=== PATIENT | female | born 1975 | race Caucasian/White ===

== ENCOUNTER → 2018-01-17 15:20 | Outpatient (CLI) | payer MEDICARE, SELFPAY ==
--- NOTE | 2018-01-17 15:22 | RAD_ITS ---
STUDY: X-RAY - LEFT KNEE REASON FOR EXAM: Female, 42 years old. 5 months postop. TECHNIQUE: 4 view(s) of the knee. COMPARISON: 11/19/2017. FINDINGS: There again is total left knee prosthesis. The alignment and position have not significantly changed. There is no evidence of acute fracture. There is no evidence of joint effusion. RAD/Knee 4 or More Views IMPRESSION: Status post total knee replacement. Electronically Signed: Adithya Manning MD at 15:23 EST Tel , Service support ,
== END ==
PROVIDERS: Visit Provider Orthopaedic Surgery
DX: M25.562 Pain in left knee (principal); Z96.652 Presence of left artificial knee joint
CPT/HCPCS: 73564

== ENCOUNTER → 2019-08-24 15:40 | Outpatient (CLI) | payer MEDICARE, SELFPAY ==
[2017-11-19 16:16] VITALS: BMI 35.8
[2019-08-24 17:51] LABS: Amphetamine Urine VISTA NEGATIVE (<1000 ng/mL); Barbiturate Urine VISTA NEGATIVE (< 200 ng/mL); Benzodiazepine Urine VISTA NEGATIVE (< 200 ng/mL); Cocaine Urine VISTA NEGATIVE (< 300 ng/mL); Ecstacy Urine VISTA NEGATIVE (< 500 ng/mL); Methadone Urine VISTA NEGATIVE (< 300 ng/mL); PCP Urine VISTA NEGATIVE (< 25 ng/mL); THC Urine VISTA NEGATIVE (< 50 ng/mL); Vista UDS pH Range 7
== END ==
PROVIDERS: Referring Provider Anesthesiology Pain Medicine; Visit Provider Anesthesiology Pain Medicine
DX: F11.20 Opioid dependence, uncomplicated (principal)
CPT/HCPCS: 80307

== ENCOUNTER → 2019-09-03 16:24 | Outpatient (CLI) | payer MEDICARE, SELFPAY ==
--- NOTE | 2019-09-03 16:25 | MRI_ITS ---
STUDY: MRI LUMBAR SPINE WITHOUT CONTRAST REASON FOR EXAM: Female, 44 years old. The patient presents with a history of back pain with pain radiating down the bilateral legs (left greater than right), x5 years. TECHNIQUE: Standardized fat and water weighted pulse sequences were obtained in the sagittal and axial planes. COMPARISON: No relevant priors. FINDINGS: Vertebrae, Alignment and Curvature Vertebrae: Normal. Alignment: Normal. Curvature: Normal lordosis. Mild levoscoliosis of the lumbar spine on this non-weight bearing examination. Thoracic Cord (visualized distal) / Conus Medullaris Normal. Terminates at the superior endplate of the L2 vertebra. Disc Space Levels N.B.: Normal level statement indicates: Normal endplates; disc height, signal and morphology; facet joints; central canal, lateral recesses, and intervertebral neuroformina. T11-12: (Imaged only in the sagittal plane). There is disc desiccation, moderate loss of the disc height, with a posterior central disc herniation of protrusion type (sagittal T2 series 2, image 8). This disc protrusion measures approximately 5 mm in its AP dimension and is producing ventral rightward ventral thecal sac flattening but without demonstrated vascularity cord impingement. Normal central canal and intervertebral neural foramina. T12-L1: Normal. (Imaged only in the sagittal plane). L1-L2: Normal. L2-L3: There is disc desiccation, mild loss of the disc height, mild facet arthrosis with mild posterior annular bulging with a left foraminal to far left lateral extraforaminal disc protrusion, but without neural impingement upon the exiting left L2 nerve root (axial T2 series 5, image 17). Disc protrusion measures approximately 4 mm in width. The intervertebral neural foramina remain patent without demonstrated neural impingement. Normal central canal. L3-L4: There is disc desiccation, severe loss of the disc height, circumferential endplate spondylosis, mild facet arthrosis with a right foraminal disc protrusion (axial T1 series 6, image 11). The right foraminal disc protrusion measures approximately 5 mm in width and is producing retrodiscal foraminal compromise (sagittal T1 series 3, image 10), but without foraminal neural impingement. Normal central canal. The left L3-4 intervertebral neural foramina remains patent. L4-L5: There is disc desiccation, mild loss of the disc height posteriorly with moderate bilateral facet arthrosis. Normal central canal with minimal bilateral foraminal stenosis but without neural impingement. L5-S1: There is disc desiccation, preservation disc height, with severe bilateral facet arthroses (left greater than right). There is left-sided facet effusion (axial T2 series 5, image 3 with subcortical cystic erosion of the superior left L5 facet (axial T2 series 5, image 1). Normal central canal and intervertebral neural foramina. Sacral Alae: Normal. Retroperitoneum and Paraspinal Structures Kidneys: Non-visualized. Aorta: Normal. Inferior Vena Cava: Normal. Lymph Nodes: None visualized. Muscles (Paraspinal): Normal. MRI/Spine Lumbar (Routine) IMPRESSION: 1. T11-12 posterior central disc herniation of protrusion type producing thecal sac flattening but without impingement upon the thoracic cord. 2. L2-3 left foraminal to far left lateral extraforaminal disc protrusion, but without neural impingement. 3. L3-4 right foraminal disc protrusion, but without neural impingement. 4. L4-5 moderate bilateral facet arthroses and foraminal stenosis but without neural impingement. 5. L5-S1 severe bilateral facet arthroses (left greater than right) with left-sided facet effusion and subcortical cystic erosion of the superior left L5 facet. No foraminal neural impingement upon the exiting L5 nerve roots. Electronically Signed: Yuan Almanzar DO at 10:56 EDT Tel , Service support ,
== END ==
LOC: MRI 16:25
PROVIDERS: Family Provider Family Medicine; PCP Family Medicine; Referring Provider Anesthesiology Pain Medicine; Visit Provider Anesthesiology Pain Medicine
DX: M54.9 Dorsalgia, unspecified (principal)
CPT/HCPCS: 72148

== ENCOUNTER → 2020-04-26 11:14 | Outpatient (CLI) | payer MEDICARE, SELFPAY ==
[2017-11-19 16:16] VITALS: BMI 35.8
[2020-04-26 13:19] LABS: Amphetamine Urine VISTA NEGATIVE (<1000 ng/mL); Barbiturate Urine VISTA NEGATIVE (< 200 ng/mL); Benzodiazepine Urine VISTA NEGATIVE (< 200 ng/mL); Cocaine Urine VISTA NEGATIVE (< 300 ng/mL); Ecstacy Urine VISTA NEGATIVE (< 500 ng/mL); Methadone Urine VISTA NEGATIVE (< 300 ng/mL); PCP Urine VISTA NEGATIVE (< 25 ng/mL); THC Urine VISTA NEGATIVE (< 50 ng/mL); Vista UDS pH Range 7
== END ==
PROVIDERS: PCP Family Medicine; Referring Provider Anesthesiology Pain Medicine; Visit Provider Anesthesiology Pain Medicine
DX: F11.20 Opioid dependence, uncomplicated (principal)
CPT/HCPCS: 80307

== ENCOUNTER → 2020-11-04 05:00 | Outpatient (REF) | payer MEDICARE, SELFPAY | LOC: OLS.ACW200 05:00 | PROVIDERS: PCP Family Medicine; Referring Provider Family Medicine; Visit Provider Family Medicine | DX: Z03.818 Encounter for observation for suspected exposure to other biological agents ruled out (principal); M86.171 Other acute osteomyelitis, right ankle and foot; A41.9 Sepsis, unspecified organism; A49.02 Methicillin resistant Staphylococcus aureus infection, unspecified site; M86.172 Other acute osteomyelitis, left ankle and foot | CPT/HCPCS: 87635; U0003 ==

== ENCOUNTER 2021-11-07 17:06 | Inpatient (IN) | payer MEDICARE, MEDICAID, SELFPAY ==
[2021-11-07 17:11] VITALS: BP 129/108; PULSE 55; RESP 18; TEMP 36.1; O2SAT 100; BMI 32.8
--- NOTE | 2021-11-07 19:46 | EKG12_ITS ---
Test Reason : DYSRHYTHMIA Blood Pressure : / mmHG Vent. Rate : 049 BPM Atrial Rate : 049 BPM P-R Int : 174 ms QRS Dur : 080 ms QT Int : 500 ms P-R-T Axes : 063 -11 039 degrees QTc Int : 451 ms Sinus bradycardia Otherwise normal ECG Confirmed by NATAN ARELLANO, CINTHYA ([id number]), editor in chief JOAN GARCIA ([id number]) on 11/10/2021 1:00:25 PM Referred By: TIM Confirmed By:CINTHYA GAMA MD
--- NOTE | 2021-11-07 19:50 | EX.ED.CRITCA ---
HPI History of Present Illness Chief Complaint: Confusion Detail of Chief Complaint: Altered mental status progressively getting worse Informant: family (Daughter is the informant since patient is nonverbal) Onset/Context/Timing Onset: Days and Weeks Context: Gradual Onset Timing: Continuous Quality: Altered mental status with multiple admissions to [facility] Location: Daughter brings her from home history is limited Maximum Severity: Severe Worsened by: Unknown Relieved by: Nothing Associated Symptoms Associated Symptoms: other (Unknown) Narrative Narrative: Patient presently is nonverbal. She has abnormal respiratory pattern. She is heavyset. Daughter is concerned that something is going on. She states she normally takes her to [facility] but [facility] seizure and then discharges her. There is no history of thyroid disease. She does have history of chronic pain. She is on gabapentin. She also has history of GERD. Prior similar symptoms: No Recent Illness/Hospitalization: Yes PFSH PFSH Medical History unable to obtain unable to obtain Home Medications albuterol sulfate 1 - 2 puff INHALATION Q6H PRN PRN 07/30/17 [History Last Taken 08/06/17 03:30 1 - 2 PUFF] calcium carbonate 500 mg PO 4X/DAY 07/30/17 [History Last Taken 08/28/17] cholecalciferol (vitamin D3) 4,000 unit PO DAILY 07/30/17 [History Last Taken 08/28/17] cyanocobalamin (vitamin B-12) 1,000 mcg PO WE 07/30/17 [History Last Taken 08/28/17] gabapentin 800 mg PO TIDCM 07/30/17 [History Last Taken 08/28/17] metoprolol tartrate 25 mg PO BID 07/30/17 [History Last Taken 08/28/17] omeprazole magnesium 20 mg PO DAILY 07/30/17 [History Last Taken 08/28/17] paroxetine HCl 30 mg PO DAILY 07/30/17 [History Last Taken 08/28/17] multivitamin with folic acid 2 tab PO DAILYCM 08/29/17 [History Last Taken 08/28/17] Allergy/AdvReac Type Severity Reaction Status Date / Time No Known Allergies Allergy Verified 11/07/21 17:09 Family History Sister Breast cancer Mother Colon cancer Surgical History History of total right knee replacement (TKR) Social History (Updated 11/07/21 @ 19:[address] Ej Sanchez MD) household members: none Smoking Status: Current some day smoker tobacco type: cigarettes substance use type: does not use ROS ROS ED Review of Systems ROS Unobtainable: due to mental status EXAM Physical Exam Const Vital Signs: 11/07/21 17:11 11/07/21 19:51 11/07/21 21:07 Temperature 97.0 F L Temperature Source Temporal Pulse Rate 55 L 52 L 58 L Respiratory Rate 18 18 Blood Pressure 129/108 H 155/88 H 205/112 H Blood Pressure Mean 115 110 143 Pulse Ox 100 100 Oxygen Delivery Method Room Air Room Air 11/07/21 22:55 11/07/21 23:10 Temperature Temperature Source Pulse Rate 56 L 57 L Respiratory Rate 17 18 Blood Pressure 195/105 H 174/96 H Blood Pressure Mean 135 122 Pulse Ox 99 93 Oxygen Delivery Method Room Air Room Air Positive well nourished, well developed and obese General Appearance ED: well developed and NAD Nutritional Appearance: obese HEENT HEENT Narrative: Ears normal. TMs normal. Nares patent. Mucosa dry. Uvula midline. normocephalic and atraumatic; Negative for cyanosis of lips/distal nose Eyes PERRL and EOMs intact bilaterally General Eye ED: Negative for pale conjunctiva or scleral icterus Neck full ROM, no lymphadenopathy, supple and no JVD Neck Narrative: Trachea is midline. There is expiratory stridor. This may be due to body habitus i.e. obstructive sleep apnea Resp Resp Narrative: Diminished breath sounds bilaterally with no rales, rhonchi or wheezing. Cardio regular rhythm, S1 normal heart sound, S2 normal heart sound and no murmurs Palpation: normal PMI Rate: bradycardia GI non-tender and non-distended Auscultation: normoactive bowel sounds Palpation: soft Back/Spine no CVA tenderness Neuro No oriented x3 Sensorium / Orientation: Negative for alert Skin Skin Narrative: There is skin breakdown with erythema and suggestion of cellulitis anterior distal right leg. The area is warm slightly indurated and erythematous. There is no lymphangitis. There is no popliteal lymphadenopathy. Patient has a BKA on the left. Lesions: no lesions Rashes: No no rashes and rashes noted MDM MDM MDM Narrative Medical decision making narrative: Patient is unresponsive. This may represent myxedema coma, need to rule out hypercapnia due to noncompliance with obstructive sleep apnea/CPAP. This may be an atypical rotation for sepsis. We will need to do metabolic infectious work-up. Her neuro exam is nonfocal. If there is no explanation for altered mental status will obtain a CAT scan of the head. Lab Data Attestation: I reviewed the patient's lab results. Labs: Laboratory Results - last 24 hr 11/07/21 11/07/21 11/07/21 18:55 18:55 18:55 WBC 6.3 RBC 3.98 L Hgb 12.7 Hct 40.3 MCV 101.3 H MCH 31.9 MCHC 31.5 L RDW Std Deviation 50.7 H RDW Coeff of Aureliano 13.5 Plt Count 273 MPV 9.9 Immature Gran % (Auto) 0.000 Neut % (Auto) 54.9 Lymph % (Auto) 28.1 [place] % (Auto) 7.8 Eos % (Auto) 8.6 H Baso % (Auto) 0.6 Absolute Neuts (auto) 3.5 Absolute Lymphs (auto) 1.77 Nucleated RBC % 0 Sodium 144 Potassium 3.4 L Chloride 110 H Carbon Dioxide 29.0 Anion Gap 5 BUN 4 L Creatinine 0.54 L Estim Creat Clear Calc 123.90 Est GFR (MDRD) Af Amer 154 Est GFR (MDRD) Non-Af 127 BUN/Creatinine Ratio 7.4 L Glucose 82 Lactic Acid 1.0 Calcium 8.8 Total Bilirubin 0.60 AST 12 L ALT 15 Alkaline Phosphatase 138 H Troponin I High Sens 6 Total Protein 6.3 L Albumin 2.8 L Globulin 3.5 Albumin/Globulin Ratio 0.8 L TSH 0.71 Urine Color Urine Clarity Urine pH Ur Specific [place] Urine Protein Urine Glucose (UA) Urine Ketones Urine Occult Blood Urine Nitrite Urine Bilirubin Urine Urobilinogen Ur Leukocyte Esterase Urine RBC Urine WBC Ur Squamous Epith Cells Urine Bacteria Urine Mucus Urine Opiates Screen Urine Methadone Screen Ur Barbiturates Screen Ur Phencyclidine Scrn Ur Amphetamines Screen U Methamphetamin-MDMA U Benzodiazepines Scrn Urine Cocaine Screen U Cannabinoids Screen Ur Drug Screen Comment 11/07/21 11/07/21 20:20 20:20 WBC RBC Hgb Hct MCV MCH MCHC RDW Std Deviation RDW Coeff of Aureliano Plt Count MPV Immature Gran % (Auto) Neut % (Auto) Lymph % (Auto) [place] % (Auto) Eos % (Auto) Baso % (Auto) Absolute Neuts (auto) Absolute Lymphs (auto) Nucleated RBC % Sodium Potassium Chloride Carbon Dioxide Anion Gap BUN Creatinine Estim Creat Clear Calc Est GFR (MDRD) Af Amer Est GFR (MDRD) Non-Af BUN/Creatinine Ratio Glucose Lactic Acid Calcium Total Bilirubin AST ALT Alkaline Phosphatase Troponin I High Sens Total Protein Albumin Globulin Albumin/Globulin Ratio TSH Urine Color Yellow Urine Clarity Clear Urine pH 6.5 Ur Specific [place] 1.010 Urine Protein Negative Urine Glucose (UA) Normal Urine Ketones Negative Urine Occult Blood Negative Urine Nitrite Negative Urine Bilirubin Negative Urine Urobilinogen Normal Ur Leukocyte Esterase Negative Urine RBC 0 SEEN Urine WBC 0 SEEN Ur Squamous Epith Cells 0 SEEN Urine Bacteria 0 SEEN Urine Mucus 0 SEEN Urine Opiates Screen NEGATIVE Urine Methadone Screen NEGATIVE Ur Barbiturates Screen NEGATIVE Ur Phencyclidine Scrn NEGATIVE Ur Amphetamines Screen NEGATIVE U Methamphetamin-MDMA NEGATIVE U Benzodiazepines Scrn NEGATIVE Urine Cocaine Screen NEGATIVE U Cannabinoids Screen NEGATIVE Ur Drug Screen Comment ABG Data ABG results: ABG 11/07/21 20:01 Specimen Type ART Sample Site R Radial pH 7.42 Bicarbonate Actual 26.5 H Total CO2 28 Base Excess 2 O2 Saturation 93 L ABG pCO2 41.2 ABG pO2 67 L Ethan Test Positive O2 Delivery Device Room Air Radiography Chest X-Ray - ED: 1 View (Single view chest x-ray is interpreted by me as unremarkable. Cardiac silhouette size normal. Perihilar regions normal. Lung parenchyma is unremarkable. Osseous structures are unremarkable.) Diagnostic Testing: Clinical Impression(s) from Imaging Studies Brain CT 11/07/21 22:05 IMPRESSION: Partial empty sella deformity likely of no significance. Otherwise normal unenhanced CT of the brain. If concern for acute infarct MRI recommended Electronically Signed: Antoni Landers MD at 22:54 EST , Service support , CT of the head without contrast were reviewed by me. There is no acute abnormality noted. Awaiting formal read by radiologist. EKG Initial EKG: Attestation: I personally reviewed and interpreted this EKG as follows: Interpretation: Sinus Bradycardia (Ventricular rate is 49. TN interval is 174 ms. QRS duration 80 ms. QT duration 500 ms. Alex is normal. Other than the sinus bradycardia the EKG is normal.) Critical Care Time Critical Care Time: Yes Critical care time (excluding procedures): 30-74 minutes (24 minutes), Including time spent: (History, physical, documentation), Discussing w/Patient &/or Family/Political Science Chair (Discussion with daughter who is the informant), Discussing w/Consultants and Arranging Admission or Transfer Discharge Plan Dx/Rx/DC Orders Clinical Impression: Unresponsive state, Bradycardia, sinus Disposition Disposition: Acute Care Hospital [facility]
[2021-11-07 19:51] VITALS: BP 155/88; PULSE 52
--- NOTE | 2021-11-07 20:02 | RAD_ITS ---
STUDY: X-RAY CHEST REASON FOR EXAM: Female, 46 years old. EXPIRATORY STRIDOR TECHNIQUE: AP portable COMPARISON: None. FINDINGS: The lungs are clear and expanded. There is no demonstrated pleural abnormality. The heart is enlarged.. Normal mediastinum and jazzy. Normal visualized pulmonary arteries. Normal visualized aortic arch and descending thoracic aorta. Normal visualized thoracic spine. Normal visualized ribs, clavicles, and shoulders. There is no demonstrated abnormality of the visualized soft tissue structures of the upper abdomen. RAD/Chest 1 View (Portable) IMPRESSION: Cardiomegaly. No acute cardiopulmonary pathology Electronically Signed: Antoni Landers MD at 20:18 EST , Service support ,
[2021-11-07] MEDS: 0.9% Normal Saline 1,000 ML 150 ML IV (20:05)
[2021-11-07 20:06] LABS: Allen Test Positive; Base Excess 2 mmol/L (-2 to +2); Bicarbonate 26.5 mmol/L (22-26); Blood Gas Specimen Type ART; O2 Delivery Device Room Air; PO2 67 mmHG (75-100); SITE R Radial; SO2 93 % (95-99); Total Carbon Dioxide 28 mmol/L; pCO2 41.2 mmHg (35-45); pH 7.42 (7.35-7.45)
[2021-11-07 20:32] LABS: Bacteria 0 SEEN /hpf (None Seen); Mucous, Urine 0 SEEN /hpf (<or=2+); Red Blood Cells-Urine 0 SEEN /hpf (0-5); Squamous Epithelial Cells - UA 0 SEEN /hpf (5-10); White Blood Cells 0 SEEN /hpf (0-5)
[2021-11-07 20:34] LABS: Absolute Lymphocyte Count 1.77 X10^3/uL (0.83-4.51); Absolute Neutrophil Count 3.5 X10^3/uL (2.0-7.7); Basophil# 0.04 X10^3/uL; Basophil% 0.6 % (0-1); Eosinophil# 0.54 X10^3/uL; Eosinophils% 8.6 % (0-5); Hematocrit 40.3 % (37-47); Hemoglobin 12.7 g/dL (12.0-15.0); Lymphocyte # 1.77 X10^3/ul (0.83-4.51); Lymphocyte % 28.1 % (19-41); Mean Corp Hgb Conc 31.5 g/dL (32-36); Mean Corpuscular Hgb 31.9 pg (27.0-32.0); Mean Corpuscular Volume 101.3 fL (81-99); Mean Platelet Vol. 9.9 fl (6.2-12.0); Monocyte# 0.49 X10^3/uL; Monocyte% 7.8 % (0-10); NRBC Flagged by Analyzer 0 % (0-5); Neutrophil # 3.45 X10^3/uL (2.7-7.7); Neutrophil % 54.9 % (47-70); Platelet Count 273 K/mm3 (150-450); RBC Distribution Width CV 13.5 % (11.6-14.6); RBC Distribution Width SD 50.7 fl (35.1-43.9); Red Blood Count 3.98 M/mm3 (4.2-5.4); White Blood Count 6.3 K/mm3 (4.4-11.0)
[2021-11-07 20:38] LABS: Color, Urine Yellow (Yellow); Glucose, Dipstick Normal (Normal); Ketone-Dipstick Negative (Negative); Leukocyte Esterase-Dipstick Negative /ul (Negative); Nitrite-Dipstick Negative (Negative); Occult Blood-Urine Negative /ul (Negative); Protein-Dipstick Negative (Negative); Urine Bilirubin Dipstick Negative (Negative); Urine Clarity Clear (Clear); Urine Urobilinogen Normal (Normal); Urine pH 6.5 (5.0 - 8.0)
[2021-11-07 21:05] LABS: ALB/GLOB Ratio 0.8 RATIO (0.9-2.4); AST(SGOT) 12 U/L (15-37); Alanine Aminotransfer ALT/SGPT 15 U/L (13-56); Albumin, Serum 2.8 g/dL (3.2-5.0); Alkaline Phosphatase 138 U/L (45-117); Anion Gap 5 (5-15); BUN 4 mg/dL (7-18); BUN/Creat Ratio 7.4 RATIO (10-20); Calcium,Total 8.8 mg/dL (8.5-10.1); Chloride 110 mmol/L (98-107); Creatinine, Serum 0.54 mg/dL (0.55-1.02); EST Glomerular Filtration Rate 127 mL/min (>60); Est Glom Filt Rate - Afr Amer 154 mL/min (>60); Globulin 3.5 g/dL (2.2-4.2); Glucose 82 mg/dL (74-106); Potassium 3.4 mmol/L (3.5-5.1); Protein, Total 6.3 g/dL (6.4-8.2); Sodium Level 144 mmol/L (136-145); Thyroid Stim Hormone (TSH) 0.71 uIU/mL (0.358-3.74); Troponin-I HS 6 pg/mL (3.0-54.0)
[2021-11-07 21:07] VITALS: BP 205/112; PULSE 58; RESP 18; O2SAT 100
--- NOTE | 2021-11-07 22:05 | CT_ITS ---
STUDY: CT BRAIN WITHOUT CONTRAST REASON FOR EXAM: Female, 46 years old. ALTERED MENTAL STATUS RADIATION DOSAGE (If Supplied By Facility): CTDIvol = ( 44.99 ) mGy, DLP = ( 812.98 ) mGycm TECHNIQUE: Transaxial CT imaging of the brain was performed without administration of intravenous contrast material. Individualized dose optimization techniques were used for this CT. COMPARISON: No relevant priors. FINDINGS: Normal soft tissue structures. Normal calvarium. Normal size ventricles and extra-axial spaces for the patient''s age. Normal white matter tracts of the cerebral hemispheres. Normal basal ganglia and thalami. Normal brainstem. Normal cerebellum. Partial empty sella deformity likely of no significance There is no intracranial hemorrhage. There are no findings of an acute ischemic infarction. Normal visualized paranasal sinuses. CT/Brain/Head without Contrast IMPRESSION: Partial empty sella deformity likely of no significance. Otherwise normal unenhanced CT of the brain. If concern for acute infarct MRI recommended Electronically Signed: Antoni Landers MD at 22:54 EST , Service support ,
[2021-11-07 22:41] LABS: Amphetamine Urine VISTA NEGATIVE (<1000 ng/mL); Barbiturate Urine VISTA NEGATIVE (< 200 ng/mL); Benzodiazepine Urine VISTA NEGATIVE (< 200 ng/mL); Cocaine Urine VISTA NEGATIVE (< 300 ng/mL); Ecstacy Urine VISTA NEGATIVE (< 500 ng/mL); Methadone Urine VISTA NEGATIVE (< 300 ng/mL); PCP Urine VISTA NEGATIVE (< 25 ng/mL); THC Urine VISTA NEGATIVE (< 50 ng/mL); Vista UDS pH Range 6
[2021-11-07 22:55] VITALS: BP 195/105; PULSE 56; RESP 17; O2SAT 99
[2021-11-07 23:10] VITALS: BP 174/96; PULSE 57; RESP 18; O2SAT 93
--- NOTE | 2021-11-07 23:42 | PCM.HP.STD ---
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 According to the daughter who was the informant concerning the patient's medical history, patient been lethargic over the last 3 days and had only gotten up out of bed to eat and go to the bathroom, today she has not been able to get out of bed and has remained lethargic. Patient's daughter told the ER physician this evening that the patient has been evaluated at [facility] emergency room within the last couple of weeks, labs were performed and testing was performed but the patient was sent home without a definite diagnosis. Patient's daughter states patient has no history of seizure disorder, she states her mother takes her medications appropriately, she states her mother had an opiate addiction problem years and years ago but to her knowledge she is not currently using opiates. An extensive work-up was performed in the emergency room including labs which showed a normal CBC except for an elevated MCV, patient's chemistry panel showed a potassium of 3.4, chloride was 110, alkaline phosphatase is elevated at 138, patient's UA was unremarkable, patient's tox screen was unremarkable. Brain CT was performed-it showed partial empty sella deformity but was otherwise unremarkable, chest x-ray was unremarkable. Patient will be admitted to PCU, she will have an MRI performed tomorrow, I suspect she may have ingested something causing her to be lethargic (? Gabapentin), I doubt this is a sequelae of a seizure. PFS Medical History unable to obtain Home Medications albuterol sulfate 1 - 2 puff INHALATION Q6H PRN PRN 07/30/17 [History Last Taken 08/06/17 03:30 1 - 2 PUFF] calcium carbonate 500 mg PO 4X/DAY 07/30/17 [History Last Taken 08/28/17] cholecalciferol (vitamin D3) 4,000 unit PO DAILY 07/30/17 [History Last Taken 08/28/17] cyanocobalamin (vitamin B-12) 1,000 mcg PO WE 07/30/17 [History Last Taken 08/28/17] gabapentin 800 mg PO TIDCM 07/30/17 [History Last Taken 08/28/17] metoprolol tartrate 25 mg PO BID 07/30/17 [History Last Taken 08/28/17] omeprazole magnesium 20 mg PO DAILY 07/30/17 [History Last Taken 08/28/17] paroxetine HCl 30 mg PO DAILY 07/30/17 [History Last Taken 08/28/17] multivitamin with folic acid 2 tab PO DAILYCM 08/29/17 [History Last Taken 08/28/17] Allergy/AdvReac Type Severity Reaction Status Date / Time No Known Allergies Allergy Verified 11/07/21 17:09 Family History Sister Breast cancer Mother Colon cancer Surgical History History of total right knee replacement (TKR) Social History (Updated 11/07/21 @ 19:[address] Ej Sanchez MD) household members: none Smoking Status: Current some day smoker tobacco type: cigarettes substance use type: does not use ROS ROS Narrative Review of systems was unobtainable due to encephalopathy Review of Systems ROS Unobtainable: due to encephalopathy Vital Signs Vital Signs Vital Signs: 11/07/21 17:11 11/07/21 19:51 11/07/21 21:07 Temperature 97.0 F L Temperature Source Temporal Pulse Rate 55 L 52 L 58 L Respiratory Rate 18 18 Blood Pressure 129/108 H 155/88 H 205/112 H Blood Pressure Mean 115 110 143 Pulse Ox 100 100 Oxygen Delivery Method Room Air Room Air 11/07/21 22:55 11/07/21 23:10 Temperature Temperature Source Pulse Rate 56 L 57 L Respiratory Rate 17 18 Blood Pressure 195/105 H 174/96 H Blood Pressure Mean 135 122 Pulse Ox 99 93 Oxygen Delivery Method Room Air Room Air Weight Weight: 95.254 kg Body Mass Index (BMI) 32.8 Physical Exam Const Constitutional Narrative: Patient is lethargic, she does not respond to painful stimuli, she does not appear to be in any distress General Appearance: well kempt and well developed Orientation / Consciousness: awake, oriented to person, oriented to place and oriented to time HEENT normocephalic and moist oral mucous membranes Eyes conjunctivae normal Eyes Narrative: Pupils are midpoint, they sluggishly react to light Neck nuchal rigidity, supple, no JVD, thyroid normal and no carotid bruits General: trachea midline Resp normal respiratory effort, no retractions, no use of accessory muscles and clear to auscultation bilaterally Auscultation: Negative for rales, rhonchi or wheezes Cardio regular rate, regular rhythm, S1 normal heart sound, S2 normal heart sound, no murmurs, no rub and no gallops GI normal to inspection, nondistended, normoactive bowel sounds, soft to palpation, non-tender and non-distended Extremity normal to inspection and no clubbing, cyanosis or edema Skin no rashes or lesions noted, no wounds and skin turgor normal General Skin Exam: no breakdown Neuro oriented x3, CN's II-XII intact bilaterally, no focal motor deficits and no sensory deficits noted Sensorium / Orientation: awake and alert Speech: speech normal Psych thought process normal and affect normal Results Lab / Micro Data Result Diagrams: 11/07/21 18:55 11/07/21 18:55 Labs: Laboratory Results - last 24 hr 11/07/21 18:55: WBC 6.3, RBC 3.98 L, Hgb 12.7, Hct 40.3, MCV 101.3 H, MCH 31.9, MCHC 31.5 L, RDW Std Deviation 50.7 H, RDW Coeff of Aureliano 13.5, Plt Count 273, MPV 9.9, Immature Gran % (Auto) 0.000, Neut % (Auto) 54.9, Lymph % (Auto) 28.1, [place] % (Auto) 7.8, Eos % (Auto) 8.6 H, Baso % (Auto) 0.6, Absolute Neuts (auto) 3.5, Absolute Lymphs (auto) 1.77, Nucleated RBC % 0 11/07/21 18:55: Sodium 144, Potassium 3.4 L, Chloride 110 H, Carbon Dioxide 29.0, Anion Gap 5, BUN 4 L, Creatinine 0.54 L, Estim Creat Clear Calc 123.90, Est GFR (MDRD) Af Amer 154, Est GFR (MDRD) Non-Af 127, BUN/Creatinine Ratio 7.4 L, Glucose 82, Calcium 8.8, Total Bilirubin 0.60, AST 12 L, ALT 15, Alkaline Phosphatase 138 H, Troponin I High Sens 6, Total Protein 6.3 L, Albumin 2.8 L, Globulin 3.5, Albumin/Globulin Ratio 0.8 L, TSH 0.71 11/07/21 18:55: Lactic Acid 1.0 11/07/21 20:20: Urine Color Yellow, Urine Clarity Clear, Urine pH 6.5, Ur Specific [place] 1.010, Urine Protein Negative, Urine Glucose (UA) Normal, Urine Ketones Negative, Urine Occult Blood Negative, Urine Nitrite Negative, Urine Bilirubin Negative, Urine Urobilinogen Normal, Ur Leukocyte Esterase Negative, Urine RBC 0 SEEN, Urine WBC 0 SEEN, Ur Squamous Epith Cells 0 SEEN, Urine Bacteria 0 SEEN, Urine Mucus 0 SEEN 11/07/21 20:20: Urine Opiates Screen NEGATIVE, Urine Methadone Screen NEGATIVE, Ur Barbiturates Screen NEGATIVE, Ur Phencyclidine Scrn NEGATIVE, Ur Amphetamines Screen NEGATIVE, U Methamphetamin-MDMA NEGATIVE, U Benzodiazepines Scrn NEGATIVE, Urine Cocaine Screen NEGATIVE, U Cannabinoids Screen NEGATIVE, Ur Drug Screen Comment ABG Data ABG results: ABG 11/07/21 20:01 Specimen Type ART Sample Site R Radial pH 7.42 Bicarbonate Actual 26.5 H Total CO2 28 Base Excess 2 O2 Saturation 93 L ABG pCO2 41.2 ABG pO2 67 L Ethan Test Positive O2 Delivery Device Room Air Radiology Impression Brain CT 11/07/21 22:05 IMPRESSION: Partial empty sella deformity likely of no significance. Otherwise normal unenhanced CT of the brain. If concern for acute infarct MRI recommended Electronically Signed: Antoni Landers MD at 22:54 EST , Service support , Assessment & Plan Assessment/Plan (1) Unresponsive state: PLAN: 1. Encephalopathy-most probably metabolic or toxic in nature, patient will be admitted to PCU, she will undergo an MRI tomorrow, patient's vital signs appear to be stable at this time, I do not think this patient has had a stroke. #2 GERD-patient on omeprazole #3 chronic depression #4 osteoarthritis This examiner is unsure why the patient is currently on gabapentin, I was not able to asked the daughter why she takes this medication. Charges/Coding Visit Charges Inpatient E&M: 26668 Init Hosp L3
[2021-11-08] VITALS (15 sets, daily range): BP systolic 139–186; BP diastolic 90–105; PULSE 53–79; RESP 15–18; TEMP 36.6–36.9; O2SAT 92–100; BMI 34.5
[2021-11-08] MEDS: KCL 20MEQ in 0.9% NS 20 MEQ/1,000 ML IV.SOLN. 125 MEQ IV (01:27)
[2021-11-08] MEDS: 0.9% Saline Lock 10 ML Syringe IV (01:32)
--- NOTE | 2021-11-08 02:56 | PCS.PANDOC ---
PANDEMIC DOCUMENTATION INITIATED: Date: 07/10/2021 Time: 190
[2021-11-08] MEDS: hydrALAZINE 20 MG/ML Vial 25 MG IV (03:05)
[2021-11-08] MEDS: Ketorolac 15 MG/ML Vial IV (03:06)
[2021-11-08 05:49] LABS: ALB/GLOB Ratio 0.6 RATIO (0.9-2.4); AST(SGOT) 34 U/L (15-37); Alanine Aminotransfer ALT/SGPT 15 U/L (13-56); Alkaline Phosphatase 122 U/L (45-117); Anion Gap 6 (5-15); BUN 5 mg/dL (7-18); BUN/Creat Ratio 11.5 RATIO (10-20); Chloride 116 mmol/L (98-107); Creatinine, Serum 0.44 mg/dL (0.55-1.02); EST Glomerular Filtration Rate 164 mL/min (>60); Est Glom Filt Rate - Afr Amer 198 mL/min (>60); Estimated Creatinine Clearance 152.06 ml/min; Globulin 3.6 g/dL (2.2-4.2); Glucose 79 mg/dL (74-106); Potassium 3.8 mmol/L (3.5-5.1); Protein, Total 5.6 g/dL (6.4-8.2); Sodium Level 143 mmol/L (136-145)
[2021-11-08 05:51] LABS: Bedside Glucose 92 mg/dL (70-110)
[2021-11-08] MEDS: Albuterol 2.5 MG/3 ML VIAL.NEB. INHALATION (06:49)
--- NOTE | 2021-11-08 09:00 | MRI_ITS ---
STUDY: MRI BRAIN WITHOUT CONTRAST REASON FOR EXAM: Female, 46 years old. encephalopathy TECHNIQUE: Standardized multiplanar fat and water weighted pulse sequences were obtained. COMPARISON: CT 11/07/2021 FINDINGS: Normal size of the ventricles and extra-axial spaces for the patient''s age. Normal white matter tracts of the supratentorial brain. There is no evidence for recent intracranial ischemia or other cause of cytotoxic edema on diffusion weighted imaging (DWI). Normal T2* images of the brain without demonstrated susceptibility artifact. There is no demonstrated hemosiderin stain. Normal bilateral basal ganglia. Normal thalami. There is no extra-axial fluid accumulation. Normal flow voids within the major intracranial circulation suggesting patency by spin echo criteria. Normal sella turcica, pituitary gland, infundibular stalk, optic chiasm and hypothalamus. Normal tectal plate and pineal gland. Normal midbrain, memo and medulla. Normal cerebellum. Normal basal cisterns. Normal bilateral temporal bones. Normal bilateral internal auditory canals. No demonstrated orbital abnormality, within the constraints of a routine brain study. Normal visualized paranasal sinuses. Normal calvarium and skull base. Normal visualized soft tissue structures. Normal visualized upper cervical spine. MRI/Brain without Contrast IMPRESSION: Normal unenhanced MRI of the brain. Electronically Signed: Kobi Johnson MD at 10:55 EST Tel , Service support ,
--- NOTE | 2021-11-08 12:26 | CASEMGMT ---
RN CM Assessment Introduced role of RN CM to patient.? Patient is alert, oriented and able?to participate in RN CM Assessment. ?Care providers, pharmacy, and demographics verified. Admit Dx: Encephalopathy, IP 12.14.21 Re-Admit: No Barriers/Issues: None. Patient answering questions for RNCM assessment appropriately. PCP: Tish Banegas Specialists: GI- In [facility]. Wound Care Clinic in [facility]. Preferred Pharmacy: [facility] Insurance: [facility], [facility] Rx Benefit:?Yes LNOK: Nacho Edwards Long LW/HPOA: None. Declines offered information or completion on this admission. Living Arrangements:?Lives with nacho Edwards in a [facility], ramp access. ADL?s: Baseline- ambulates with LLE Prosthesis and rollator but currently has a blister at Prosthesis area so has been utilizing the manual WC. Transportation: Family or friends. DC- Nacho Lobo. DME: Rollator, Manual WC, Power WC, Nebulizer, Glucometer. HHC: None SNF: Past at [facility] Goal: Home and does not think will have any needs at DC. Denies any issues, questions or concerns with DC planning at this time. Aware RNCM will continue to follow should any needs arise. DC PLAN: Home with no anticipated needs identified at this time. WILLIAM Gerber
--- NOTE | 2021-11-08 13:43 | PN.HOSP_ITS ---
Documented by User: Berny RODRIGUEZ 11/08/21 13:57 Subjective Subjective Patient is a 46-year-old female comfortably resting in bed, alert and orient x3. Patient reports that she is still a little fuzzy and is still having ongoing difficulty with swallowing, which she had prior to admission. Denies deve lopment of any new symptoms overnight. Does not appear in acute distress. Objective Data Objective Data Vital Signs: Vital Signs Temp Pulse Resp BP Pulse Ox 98.4 F 68 15 139/93 H 97 11/08/21 08:40 11/08/21 11:40 11/08/21 08:40 11/08/21 08:40 11/08/21 08:40 Oxygen Delivery Method Room Air Weight: 220 lb 7.396 oz Body Mass Index (BMI) 34.5 Intake & Output: Intake and Output for Last 24 Hours 11/06/21 11/07/21 11/08/21 23:59 23:59 23:59 Intake Total 1775.0 / 1775.0 Output Total 900 / 900 Balance 875.0 / 875.0 Lab / Micro Data Result Diagrams: 11/07/21 18:55 11/08/21 05:08 Labs: Laboratory Results - last 24 hr 11/07/21 18:55: WBC 6.3, RBC 3.98 L, Hgb 12.7, Hct 40.3, MCV 101.3 H, MCH 31.9, MCHC 31.5 L, RDW Std Deviation 50.7 H, RDW Coeff of Aureliano 13.5, Plt Count 273, MPV 9.9, Immature Gran % (Auto) 0.000, Neut % (Auto) 54.9, Lymph % (Auto) 28.1, [place] % (Auto) 7.8, Eos % (Auto) 8.6 H, Baso % (Auto) 0.6, Absolute Neuts (auto) 3.5, Absolute Lymphs (auto) 1.77, Nucleated RBC % 0 11/07/21 18:55: Sodium 144, Potassium 3.4 L, Chloride 110 H, Carbon Dioxide 29.0, Anion Gap 5, BUN 4 L, Creatinine 0.54 L, Estim Creat Clear Calc 123.90, Est GFR (MDRD) Af Amer 154, Est GFR (MDRD) Non-Af 127, BUN/Creatinine Ratio 7.4 L, Glucose 82, Calcium 8.8, Total Bilirubin 0.60, AST 12 L, ALT 15, Alkaline Phosphatase 138 H, Troponin I High Sens 6, Total Protein 6.3 L, Albumin 2.8 L, Globulin 3.5, Albumin/Globulin Ratio 0.8 L, TSH 0.71 11/07/21 18:55: Lactic Acid 1.0 11/07/21 20:20: Urine Color Yellow, Urine Clarity Clear, Urine pH 6.5, Ur Specific Bowman 1.010, Urine Protein Negative, Urine Glucose (UA) Normal, Urine Ketones Negative, Urine Occult Blood Negative, Urine Nitrite Negative, Urine Bilirubin Negative, Urine Urobilinogen Normal, Ur Leukocyte Esterase Negative, Urine RBC 0 SEEN, Urine WBC 0 SEEN, Ur Squamous Epith Cells 0 SEEN, Urine Bacteria 0 SEEN, Urine Mucus 0 SEEN 11/07/21 20:20: Urine Opiates Screen NEGATIVE, Urine Methadone Screen NEGATIVE, Ur Barbiturates Screen NEGATIVE, Ur Phencyclidine Scrn NEGATIVE, Ur Amphetamines Screen NEGATIVE, U Methamphetamin-MDMA NEGATIVE, U Benzodiazepines Scrn NEGATIVE, Urine Cocaine Screen NEGATIVE, U Cannabinoids Screen NEGATIVE, Ur Drug Screen Comment 11/08/21 04:29: POC Glucose 92 11/08/21 05:08: Sodium 143, Potassium 3.8, Chloride 116 H, Carbon Dioxide 21.0, Anion Gap 6, BUN 5 L, Creatinine 0.44 L, Estim Creat Clear Calc 152.06, Est GFR (MDRD) Af Amer 198, Est GFR (MDRD) Non-Af 164, BUN/Creatinine Ratio 11.5, Glucose 79, Calcium 8.0 L, Total Bilirubin 0.70, AST 34, ALT 15, Alkaline Phosphatase 122 H, Total Protein 5.6 L, Albumin 2.0 L, Globulin 3.6, Albumin/Globulin Ratio 0.6 L ABG Data ABG results: ABG 11/07/21 20:01 Specimen Type ART Sample Site R Radial pH 7.42 Bicarbonate Actual 26.5 H Total CO2 28 Base Excess 2 O2 Saturation 93 L ABG pCO2 41.2 ABG pO2 67 L Ethan Test Positive O2 Delivery Device Room Air Radiography Diagnostic Testing: Radiology Impression Chest X-Ray 11/07/21 20:02 IMPRESSION: Cardiomegaly. No acute cardiopulmonary pathology Electronically Signed: Antoni Landers MD at 20:18 EST , Service support , Brain CT 11/07/21 22:05 IMPRESSION: Partial empty sella deformity likely of no significance. Otherwise normal unenhanced CT of the brain. If concern for acute infarct MRI recommended Electronically Signed: Antoni Landers MD at 22:54 EST , Service support , Brain MRI 11/08/21 09:00 IMPRESSION: Normal unenhanced MRI of the brain. Electronically Signed: Kobi Johnson MD at 10:55 EST Tel , Service support , Physical Exam Const alert, oriented x3 and no apparent distress HEENT head/scalp atraumatic and moist oral mucous membranes Head and Scalp: normocephalic Eyes PERRL, EOMs intact bilaterally and conjunctivae normal Neck no lymphadenopathy, supple and no JVD Resp normal respiratory effort, no retractions, no use of accessory muscles and clear to auscultation bilaterally Cardio regular rate, regular rhythm, no murmurs and no JVD GI normal to inspection, nondistended, normoactive bowel sounds, soft to palpation and non-tender Extremity normal to inspection, full ROM and no clubbing, cyanosis or edema Skin no rashes or lesions noted, no wounds and skin turgor normal Neuro CN's II-XII intact bilaterally Psych affect normal Assessment & Plan Assessment/Plan (1) Unresponsive state: PLAN: Day 1 Discharge planning: To be determined. 1) acute encephalopathy secondary to polypharmacy Brain MRI did not reveal any evidence of acute ischemia or infarction and was otherwise unremarkable. Vital signs stable and patient is afebrile. CBC and BMP are unremarkable. Blood cultures pending. Believe patient's encepha lopathic episode is due to polypharmacy as she is on several sedating medications. Will decrease sedating medications that patient takes at home to include baclofen to 5 mg p.o. 3 times daily, gabapentin 600 mg p.o. 3 times daily and promethazine to 12.5 mg p.o. 3 times daily as needed. 2) dysphagia Patient reports that she is having difficulty swallowing to include home medications. She has had this worked up as an outpatient, for which she claims that she never received the results. Request for records put in at [facility] gastroenterology. All other medications for chronic medications are on hold due to n.p.o. status. DVT prophylaxis - SCDs Patient seen by Berny Tadeo PA-C, under the supervision of Dr. Avina. Documented by User: Dr. Karri Avina MD 11/08/21 15:16 Subjective Subjective Patient has left below-knee amputation due to Charcot's joint. She also blistered which was drained about 2 weeks ago and as per the patient it is healing over right aty. There is surrounding redness and erythema. Patient is awake and alert now. Was admitted with confusion encephalopathy lethargy for 3 days. Objective Data Lab / Micro Data Result Diagrams: 11/07/21 18:55 11/08/21 05:08 Physical Exam Narrative Patient admitted that she takes baclofen and promethazine for possible infection and nausea respectively. Gabapentin for pain. General: Alert, Oriented x3, Cooperative HEENT: Atraumatic, PERRLA, EOMI, Normocephalic Oral: No Gingival or Mucosal Lesions/ Ulcerations Neck: Supple, No JVD, Negative Carotid Bruits Lungs: Air entry diminished in bilateral lung bases. No crepitation/rhonchi Cardiovascular: Regular rate, Regular Rhythm, Normal S1, Normal S2, No murmurs Abdomen: Bowel Sounds Present, Soft, Non Tender, Non-Distended : No renal angle tenderness. No suprapubic tenderness. Extremities: Left BKA. Scab with surrounding redness over right tay. No tenderness. Skin: As described in right tay above Musculoskeletal: No Tenderness to Palpation of Joints or Extremities. Neurological: Cranial nerves II-XII grossly intact, DTR 2+/4 and Symmetrical, Neuro grossly intact Psych/Mental Status: Flat affect. Assessment & Plan Assessment/Plan (1) Unresponsive state: PLAN: This patient was seen in conjunction with JENNIFER Lucio. I have independently interviewed and examined the patient and reviewed pertinent history, examination findings, laboratory and plan of management. I have reviewed the note and agree with the documented findings with the few additional points. In brief, patient is admitted for acute encephalopathy, and unresponsive state due to polypharmacy. After admission to PCU she woke up. It seems she is on polypharmacy with baclofen, Phenergan and high-dose gabapentin. Baclofen and Phenergan discontinued. Gabapentin dose lowered. On ibuprofen for pain. Zanaflex low-dose as needed for muscle spasm. Patient also found to have history of dysphagia and had swallowing test in [facility] this year. Records requested as mentioned above. Speech therapy consulted. I have discussed my assessment with JENNIFER Lucio and orders have been review ed. Charges/Coding Visit Charges Inpatient E&M: 28969 Subs Hosp L2
[2021-11-08] MEDS: Ibuprofen 600 MG Tablet PO (14:13)
[2021-11-08] MEDS: Heparin Injection (Vial) 5,000 UNIT/ML VIAL 5000 UNIT SC (14:14)
[2021-11-08] MEDS: Dicyclomine 10 MG Capsule PO (15:02)
[2021-11-08] MEDS: DULoxetine Hcl 30 MG Capsule PO (15:03)
[2021-11-08] MEDS: Pantoprazole Sodium 40 MG Tablet PO (15:03)
[2021-11-08] MEDS: Metoprolol(XL)Succ 25 MG Tablet PO (15:03)
[2021-11-08] MEDS: Gabapentin 600 MG Tablet PO (16:24)
--- NOTE | 2021-11-08 16:58 | PCM.DC ---
Discharge Instructions Diet Discharge Diet: No restrictions Activity Discharge Activity: Return to Normal Activity Weight Bearing Status: Weight bearing as tolerated Dressing / Incision Call your doctor if you observe: Fever of 101 or Higher, Numbness or Tingling, Shortness of breath, Dizziness, Chest pain, Increased palpitations (irregular heartbeat) and Calf discomfort Follow Up Care Please Follow Up With: Primary care provider When: Within the next two weeks. Test Results: Test results from this visit will be discussed in further detail at your follow-up appointment, if applicable. Discharge Plan Admission Admit Date/Time: 11/07/21 23:43 Primary Reason for Your Visit: Confusion Attending Provider: Karri Avina Primary Care Provider: Tish Banegas Instructions Additional Instructions / Restrictions: * Contact your GI specialist to establish your esophageal manometry study. Discharge Orders/Prescriptions Prescriptions: New gabapentin 600 mg Tablet 600 mg PO TIDCM Qty: 90 RF: 0 tizanidine [Zanaflex] 2 mg capsule 2 mg PO Q8H PRN (Reason: muscle spasticity) Qty: 90 RF: 0 ondansetron HCl [Zofran] 4 mg tablet 4 mg PO Q8H PRN (Reason: nausea and vomiting) Qty: 90 RF: 0 Continued albuterol sulfate 1 INHALER inhaler 1 - 2 puff INHALATION Q6H PRN PRN (Reason: Asthma) RF: 0 multivitamin with folic acid 1 TABLET tablet 2 tab PO DAILYCM RF: 0 pantoprazole [Protonix] 40 mg Tablet,Delayed Release (Dr/Ec) 40 mg PO DAILY RF: 0 lisinopril 10 mg Tablet 10 mg PO DAILY RF: 0 furosemide [Lasix] 20 mg Tablet 20 mg PO DAILY RF: 0 metoprolol succinate 25 mg Tablet Extended Release 24 Hr 25 mg PO DAILY RF: 0 dicyclomine 10 mg Capsule 10 mg PO TID RF: 0 duloxetine [Cymbalta] 30 mg Capsule,Delayed Release(Dr/Ec) 30 mg PO DAILY RF: 0 ergocalciferol (vitamin D2) 50,000 unit Tablet 50,000 unit PO QWEEK RF: 0 ipratropium-albuterol 0.5 mg-3 mg(2.5 mg base)/3 mL solution for nebulization 3 ml inhalation Q4H PRN PRN (Reason: asthma) RF: 0 Discontinued gabapentin 800 MG tablet 800 mg PO TIDCM RF: 0 promethazine 25 mg tablet 25 mg PO TID PRN (Reason: pnausea) RF: 0 baclofen 10 mg Tablet 10 mg PO TID RF: 0 Referrals / Follow Up: Tish Banegas MD [Primary Care Provider] - Within 2 Weeks Disposition Disposition (needs filled in before D/C Order can be placed): Home, Self Care
--- NOTE | 2021-11-08 17:52 | DS.PCM_ITS ---
Documented by User: Berny RODRIGUEZ 11/08/21 17:59 Providers Date of Admission: 11/07/21 Primary Care Physician: Dr. Tish Banegas MD Reason For Visit: ENCEPHALOPATHY Diagnosis Discharge Diagnosis (1) Unresponsive state: Status: Acute Code(s): R41.89 - Other symptoms and signs involving cognitive functions and awareness Medications at Discharge Home Medications albuterol sulfate 1 - 2 puff INHALATION Q6H PRN PRN 07/30/17 multivitamin with folic acid 2 tab PO DAILYCM 08/29/17 dicyclomine 10 mg PO TID 11/08/21 duloxetine [Cymbalta] 30 mg PO DAILY 11/08/21 ergocalciferol (vitamin D2) 50,000 unit PO QWEEK 11/08/21 furosemide [Lasix] 20 mg PO DAILY 11/08/21 gabapentin 600 mg PO TIDCM #90 tab 11/08/21 ipratropium-albuterol 3 ml INHALATION Q4H PRN PRN 11/08/21 lisinopril 10 mg PO DAILY 11/08/21 metoprolol succinate 25 mg PO DAILY 11/08/21 ondansetron HCl [Zofran] 4 mg PO Q8H PRN #90 tab 11/08/21 pantoprazole [Protonix] 40 mg PO DAILY 11/08/21 tizanidine [Zanaflex] 2 mg PO Q8H PRN #90 cap 11/08/21 Hospital Course Summary of Care Provided Minutes Spent on Discharge: 35 Hospital Course: Disposition: Patient to discharge home. 1) acute encephalopathy secondary to polypharmacy Brain MRI did not reveal any evidence of acute ischemia or infarction and was otherwise unremarkable. Vital signs stable and patient is afebrile. CBC and BMP are unremarkable. Blood cultures pending. Believe patient's encephalopathic episode is due to polypharmacy as she is on several sedating medications. We will make the following changes to patient's home medication list: We will discontinue patient's promethazine and baclofen. Replace with Zofran and Zanaflex. We will decrease patient's gabapentin from 800 mg to 600 mg p.o. 3 times daily. Patient is to follow-up with primary care provider within the next 2 weeks. 2) dysphagia Patient reports that she is having difficulty swallowing. She has had this worked up as an outpatient by [facility]. A request for records was obtained and barium swallow results recommended a diet of regular consistency with follow-up esophageal manometry study. Patient was provided a copy of the results, as she was unaware. Patient in agreement to call outpatient GI office for follow on studies. Patient seen by Berny Tadeo PA-C, under the supervision of Dr. Avina. Physical Exam Narrative Patient is a 46-year-old female comfortably resting in bed, alert and orient x3. Patient reports that she is still a little fuzzy and is still having ongoing difficulty with swallowing, which she had prior to admission. Denies development of any new symptoms overnight. Does not appear in acute distress. Const alert, oriented x3 and no apparent distress HEENT normocephalic, head/scalp atraumatic and hearing grossly normal bilaterally Eyes PERRL, EOMs intact bilaterally and conjunctivae normal Neck no lymphadenopathy, supple and no JVD Resp normal respiratory effort, no retractions, no use of accessory muscles and clear to auscultation bilaterally Cardio regular rate and regular rhythm GI normal to inspection, nondistended, normoactive bowel sounds, soft to palpation and non-tender Extremity normal to inspection, full ROM and no clubbing, cyanosis or edema Skin no rashes or lesions noted, no wounds and skin turgor normal Neuro CN's II-XII intact bilaterally Psych affect normal Weight / BMI Weight Weight: 220 lb 7.396 oz Body Mass Index (BMI) 34.5 ABG / Lab / Microbiology Data Result Diagrams: 11/07/21 18:55 11/08/21 05:08 Laboratory: Laboratory Results - last 24 hr 11/07/21 18:55: WBC 6.3, RBC 3.98 L, Hgb 12.7, Hct 40.3, MCV 101.3 H, MCH 31.9, MCHC 31.5 L, RDW Std Deviation 50.7 H, RDW Coeff of Aureliano 13.5, Plt Count 273, MPV 9.9, Immature Gran % (Auto) 0.000, Neut % (Auto) 54.9, Lymph % (Auto) 28.1, Edmonson % (Auto) 7.8, Eos % (Auto) 8.6 H, Baso % (Auto) 0.6, Absolute Neuts (auto) 3.5, Absolute Lymphs (auto) 1.77, Nucleated RBC % 0 11/07/21 18:55: Sodium 144, Potassium 3.4 L, Chloride 110 H, Carbon Dioxide 29.0, Anion Gap 5, BUN 4 L, Creatinine 0.54 L, Estim Creat Clear Calc 123.90, Est GFR (MDRD) Af Amer 154, Est GFR (MDRD) Non-Af 127, BUN/Creatinine Ratio 7.4 L, Glucose 82, Calcium 8.8, Total Bilirubin 0.60, AST 12 L, ALT 15, Alkaline Phosphatase 138 H, Troponin I High Sens 6, Total Protein 6.3 L, Albumin 2.8 L, Globulin 3.5, Albumin/Globulin Ratio 0.8 L, TSH 0.71 11/07/21 18:55: Lactic Acid 1.0 11/07/21 20:20: Urine Color Yellow, Urine Clarity Clear, Urine pH 6.5, Ur Specific Ava 1.010, Urine Protein Negative, Urine Glucose (UA) Normal, Urine Ketones Negative, Urine Occult Blood Negative, Urine Nitrite Negative, Urine Bilirubin Negative, Urine Urobilinogen Normal, Ur Leukocyte Esterase Negative, Urine RBC 0 SEEN, Urine WBC 0 SEEN, Ur Squamous Epith Cells 0 SEEN, Urine Bacteria 0 SEEN, Urine Mucus 0 SEEN 11/07/21 20:20: Urine Opiates Screen NEGATIVE, Urine Methadone Screen NEGATIVE, Ur Barbiturates Screen NEGATIVE, Ur Phencyclidine Scrn NEGATIVE, Ur Amphetamines Screen NEGATIVE, U Methamphetamin-MDMA NEGATIVE, U Benzodiazepines Scrn NEGATIVE, Urine Cocaine Screen NEGATIVE, U Cannabinoids Screen NEGATIVE, Ur Drug Screen Comment 11/08/21 04:29: POC Glucose 92 11/08/21 05:08: Sodium 143, Potassium 3.8, Chloride 116 H, Carbon Dioxide 21.0, Anion Gap 6, BUN 5 L, Creatinine 0.44 L, Estim Creat Clear Calc 152.06, Est GFR (MDRD) Af Amer 198, Est GFR (MDRD) Non-Af 164, BUN/Creatinine Ratio 11.5, Glucose 79, Calcium 8.0 L, Total Bilirubin 0.70, AST 34, ALT 15, Alkaline Phosphatase 122 H, Total Protein 5.6 L, Albumin 2.0 L, Globulin 3.6, Albumin /Globulin Ratio 0.6 L ABG: ABG 11/07/21 20:01 Specimen Type ART Sample Site R Radial pH 7.42 Bicarbonate Actual 26.5 H Total CO2 28 Base Excess 2 O2 Saturation 93 L ABG pCO2 41.2 ABG pO2 67 L Ethan Test Positive O2 Delivery Device Room Air Radiography Diagnostic Testing: Radiology Impression Chest X-Ray 11/07/21 20:02 IMPRESSION: Cardiomegaly. No acute cardiopulmonary pathology Electronically Signed: Antoni Landers MD at 20:18 EST , Service support , Brain CT 11/07/21 22:05 IMPRESSION: Partial empty sella deformity likely of no significance. Otherwise normal unenhanced CT of the brain. If concern for acute infarct MRI recommended Electronically Signed: Antoni Landers MD at 22:54 EST , Service support , Brain MRI 11/08/21 09:00 IMPRESSION: Normal unenhanced MRI of the brain. Electronically Signed: Kobi Johnson MD at 10:55 EST Tel , Service support , D/C Instructions Discharge Diet: No restrictions Weight Bearing Status: Weight bearing as tolerated Call your doctor if you observe: Fever of 101 or Higher, Numbness or Tingling, Shortness of breath, Dizziness, Chest pain, Increased palpitations (irregular heartbeat) and Calf discomfort Please Follow Up With: Primary care provider When: Within the next two weeks. Meaningful Use Info Meaningful Use Diagnoses (Choose all that apply): None applicable Discharge Plan Admission Admit Date/Time: 11/07/21 23:43 Primary Reason for Your Visit: Confusion Attending Provider: Karri Avina Primary Care Provider: Tish Banegas Instructions Additional Instructions / Restrictions: * Contact your GI specialist to establish your esophageal manometry study. Discharge Orders/Prescriptions Prescriptions: New gabapentin 600 mg Tablet 600 mg PO TIDCM Qty: 90 RF: 0 tizanidine [Zanaflex] 2 mg capsule 2 mg PO Q8H PRN (Reason: muscle spasticity) Qty: 90 RF: 0 ondansetron HCl [Zofran] 4 mg tablet 4 mg PO Q8H PRN (Reason: nausea and vomiting) Qty: 90 RF: 0 Continued albuterol sulfate 1 INHALER inhaler 1 - 2 puff INHALATION Q6H PRN PRN (Reason: Asthma) RF: 0 multivitamin with folic acid 1 TABLET tablet 2 tab PO DAILYCM RF: 0 pantoprazole [Protonix] 40 mg Tablet,Delayed Release (Dr/Ec) 40 mg PO DAILY RF: 0 lisinopril 10 mg Tablet 10 mg PO DAILY RF: 0 furosemide [Lasix] 20 mg Tablet 20 mg PO DAILY RF: 0 metoprolol succinate 25 mg Tablet Extended Release 24 Hr 25 mg PO DAILY RF: 0 dicyclomine 10 mg Capsule 10 mg PO TID RF: 0 duloxetine [Cymbalta] 30 mg Capsule,Delayed Release(Dr/Ec) 30 mg PO DAILY RF: 0 ergocalciferol (vitamin D2) 50,000 unit Tablet 50,000 unit PO QWEEK RF: 0 ipratropium-albuterol 0.5 mg-3 mg(2.5 mg base)/3 mL solution for nebulization 3 ml inhalation Q4H PRN PRN (Reason: asthma) RF: 0 Discontinued gabapentin 800 MG tablet 800 mg PO TIDCM RF: 0 promethazine 25 mg tablet 25 mg PO TID PRN (Reason: pnausea) RF: 0 baclofen 10 mg Tablet 10 mg PO TID RF: 0 Referrals / Follow Up: Tish Banegas MD [Primary Care Provider] - Within 2 Weeks Disposition Disposition (needs filled in before D/C Order can be placed): Home, Self Care Documented by User: Dr. Karri Avina MD 11/09/21 16:20 Providers Date of Admission: 11/07/21 Reason For Visit: ENCEPHALOPATHY Medications at Discharge Home Medications albuterol sulfate 1 - 2 puff INHALATION Q6H PRN PRN 07/30/17 multivitamin with folic acid 2 tab PO DAILYCM 08/29/17 dicyclomine 10 mg PO TID 11/08/21 duloxetine [Cymbalta] 30 mg PO DAILY 11/08/21 ergocalciferol (vitamin D2) 50,000 unit PO QWEEK 11/08/21 furosemide [Lasix] 20 mg PO DAILY 11/08/21 gabapentin 600 mg PO TIDCM #90 tab 11/08/21 ipratropium-albuterol 3 ml INHALATION Q4H PRN PRN 11/08/21 lisinopril 10 mg PO DAILY 11/08/21 metoprolol succinate 25 mg PO DAILY 11/08/21 ondansetron HCl [Zofran] 4 mg PO Q8H PRN #90 tab 11/08/21 pantoprazole [Protonix] 40 mg PO DAILY 11/08/21 tizanidine [Zanaflex] 2 mg PO Q8H PRN #90 cap 11/08/21 Hospital Course Summary of Care Provided Hospital Course: This patient was seen in conjunction with JENNIFER Lucio. I have independently interviewed and examined the patient and reviewed pertinent history, examination findings, laboratory and plan of management. I have reviewed the note and agree with the documented findings with the few additional points. In brief, patient is admitted for acute encephalopathy, and unresponsive state due to polypharmacy. After admission to PCU she woke up. It seems she is on polypharmacy with baclofen, Phenergan and high-dose gabapentin. Baclofen and Phenergan discontinued. Gabapentin dose lowered. On ibuprofen for pain. Zanaflex low-dose as needed for muscle spasm. Patient had MRI which did not show acute infarct and reported normal unenhanced MRI of the brain. Patient home medication promethazine and baclofen were discontinued and replaced with Zofran and Zanaflex. Gabapentin dosage decreased. Patient advised to follow with PCP. Patient also found to have history of dysphagia and had swallowing test in [facility] this year. Records from [facility] showed barium swallow study which recommended regular consistency food with follow-up esophageal manometry study. Advised to follow-up with GI as an outpatient. Discharge medication reconciliation done. Discharge follow-up instructions completed. Discharge process discussed with the patient and all questions were answered to patient's satisfaction. Total time spent, exact 35 minutes on discharge meds reconciliation, examination, coordination of care with nurses and ancillary staff, review of imaging and blood test and discussion with the patient on follow-up instructions I have discussed my assessment with JENNIFER Lucio and orders have been reviewed. Physical Exam Narrative Please see progress note for detailed exam findings. Patient was seen and examined on the day of discharge. ABG / Lab / Microbiology Data Result Diagrams: 11/07/21 18:55 11/08/21 05:08 Discharge Plan Admission Admit Date/Time: 11/07/21 23:43 Primary Reason for Your Visit: Confusion Attending Provider: Karri Avian Primary Care Provider: Tish Banegas Instructions Additional Instructions / Restrictions: * Contact your GI specialist to establish your esophageal manometry study. Discharge Orders/Prescriptions Prescriptions: New gabapentin 600 mg Tablet 600 mg PO TIDCM Qty: 90 RF: 0 tizanidine [Zanaflex] 2 mg capsule 2 mg PO Q8H PRN (Reason: muscle spasticity) Qty: 90 RF: 0 ondansetron HCl [Zofran] 4 mg tablet 4 mg PO Q8H PRN (Reason: nausea and vomiting) Qty: 90 RF: 0 Continued albuterol sulfate 1 INHALER inhaler 1 - 2 puff INHALATION Q6H PRN PRN (Reason: Asthma) RF: 0 multivitamin with folic acid 1 TABLET tablet 2 tab PO DAILYCM RF: 0 pantoprazole [Protonix] 40 mg Tablet,Delayed Release (Dr/Ec) 40 mg PO DAILY RF: 0 lisinopril 10 mg Tablet 10 mg PO DAILY RF: 0 furosemide [Lasix] 20 mg Tablet 20 mg PO DAILY RF: 0 metoprolol succinate 25 mg Tablet Extended Release 24 Hr 25 mg PO DAILY RF: 0 dicyclomine 10 mg Capsule 10 mg PO TID RF: 0 duloxetine [Cymbalta] 30 mg Capsule,Delayed Release(Dr/Ec) 30 mg PO DAILY RF: 0 ergocalciferol (vitamin D2) 50,000 unit Tablet 50,000 unit PO QWEEK RF: 0 ipratropium-albuterol 0.5 mg-3 mg(2.5 mg base)/3 mL solution for nebulization 3 ml inhalation Q4H PRN PRN (Reason: asthma) RF: 0 Discontinued gabapentin 800 MG tablet 800 mg PO TIDCM RF: 0 promethazine 25 mg tablet 25 mg PO TID PRN (Reason: pnausea) RF: 0 baclofen 10 mg Tablet 10 mg PO TID RF: 0 Referrals / Follow Up: Tish Banegas MD [Primary Care Provider] - Within 2 Weeks Disposition Disposition (needs filled in before D/C Order can be placed): Home, Self Care Charges/Coding Addendum Addendum: Please cancel the billing charge of progress note of the same date. Visit Charges Inpatient E&M: 25884 Disch Hosp
[2021-11-08] MEDS: Lisinopril 10 MG Tablet PO (18:05)
--- NOTE | 2021-11-08 19:46 | NURSING ---
Pt's ride here, leaving now.
== END 2021-11-08 19:56 | disposition home or self-care (01) | DRG 93 ==
LOC: ED 23:37 → PCU 11-08 00:06
PROVIDERS: Admitting Provider Internal Medicine; Emergency Provider Emergency Medicine; PCP Family Medicine; Visit Provider Internal Medicine
DX: G92.8 Other toxic encephalopathy (principal); T43.3X5A Adverse effect of phenothiazine antipsychotics and neuroleptics, initial encounter; T42.8X5A Adverse effect of antiparkinsonism drugs and other central muscle-tone depressants, initial encounter; T42.6X5A Adverse effect of other antiepileptic and sedative-hypnotic drugs, initial encounter; R13.10 Dysphagia, unspecified; K21.9 Gastro-esophageal reflux disease without esophagitis; M19.90 Unspecified osteoarthritis, unspecified site; F32.A Depression, unspecified; F17.210 Nicotine dependence, cigarettes, uncomplicated; Z79.899 Other long term (current) drug therapy
CPT/HCPCS: 36415; 36600; 51702; 70450; 70551; 71045; 80053; 80307; 81001; 82803; 82962; 83605; 84443; 84484; 85025; 87040; 92610; 93005; 94640; 97802; 99251; 99285; J7030; A4216; G0463

== ENCOUNTER 2022-01-23 11:03 | Outpatient (CLI) | payer MEDICARE, MEDICAID, SELFPAY ==
[2022-01-23 11:49] LABS: Amphetamine Urine VISTA NEGATIVE (<1000 ng/mL); Barbiturate Urine VISTA NEGATIVE (< 200 ng/mL); Benzodiazepine Urine VISTA NEGATIVE (< 200 ng/mL); Cocaine Urine VISTA NEGATIVE (< 300 ng/mL); Ecstacy Urine VISTA NEGATIVE (< 500 ng/mL); Methadone Urine VISTA NEGATIVE (< 300 ng/mL); PCP Urine VISTA NEGATIVE (< 25 ng/mL); THC Urine VISTA NEGATIVE (< 50 ng/mL); Vista UDS pH Range 6
== END 2022-01-23 23:59 | disposition home or self-care (01) ==
PROVIDERS: PCP Family Medicine; Referring Provider Anesthesiology Pain Medicine; Visit Provider Anesthesiology Pain Medicine
DX: F11.20 Opioid dependence, uncomplicated (principal)
CPT/HCPCS: 80307